=== PATIENT | female | born 1970 | race Caucasian/White ===

== ENCOUNTER 2017-07-25 06:14 | Emergency (ER) | payer MEDICARE, MEDICAID ==
[~2017-07-25] VITALS: Ht 172.7 cm; Wt 66.0 kg
[2017-07-25 07:43] VITALS: BP 112/68
[2017-07-25] MEDS ORDERED: IBUPROFEN 600MG TABLET PO ONE (07:45)
== END 2017-07-25 08:26 | disposition home or self-care (01) ==
LOC: ER 06:14
DX: J01.90 Acute sinusitis, unspecified (principal); F17.200 Nicotine dependence, unspecified, uncomplicated; F12.10 Cannabis abuse, uncomplicated; K21.9 Gastro-esophageal reflux disease without esophagitis; Z98.890 Other specified postprocedural states
CPT/HCPCS: 99283